=== PATIENT | female | born 1995 ===

== ENCOUNTER 2022-05-01 10:20 | Outpatient (CLI) | payer OTHER | END 2022-05-01 12:12 | disposition home or self-care (01) | LOC: PRENATAL 10:20 | PROVIDERS: ATTEND Obstetrics & Gynecology Maternal & Fetal Medicine | DX: O36.80X0 Pregnancy with inconclusive fetal viability, not applicable or unspecified (principal); O34.00 Maternal care for unspecified congenital malformation of uterus, unspecified trimester; Z14.8 Genetic carrier of other disease; Z3A.13 13 weeks gestation of pregnancy ==

== ENCOUNTER 2022-06-19 15:40 | Outpatient (CLI) | payer OTHER | END 2022-06-19 17:02 | disposition home or self-care (01) | LOC: PRENATAL 15:40 | PROVIDERS: ATTEND Obstetrics & Gynecology Maternal & Fetal Medicine | DX: O35.9XX0 Maternal care for (suspected) fetal abnormality and damage, unspecified, not applicable or unspecified (principal); O35.3XX0 Maternal care for (suspected) damage to fetus from viral disease in mother, not applicable or unspecified; Z3A.20 20 weeks gestation of pregnancy ==

== ENCOUNTER 2022-09-11 10:10 | Outpatient (CLI) | payer OTHER | END 2022-09-11 11:20 | disposition home or self-care (01) | LOC: PRENATAL 10:10 | PROVIDERS: ATTEND Obstetrics & Gynecology Maternal & Fetal Medicine | DX: O26.849 Uterine size-date discrepancy, unspecified trimester (principal); O35.9XX0 Maternal care for (suspected) fetal abnormality and damage, unspecified, not applicable or unspecified; Z3A.32 32 weeks gestation of pregnancy ==

== ENCOUNTER 2022-10-23 12:15 | Inpatient (IN) | payer OTHER ==
[~2022-10-23] VITALS: Ht 154.9 cm; Wt 3.2 kg
[2022-10-23] MEDS ORDERED: PRENAT PO (14:54)
[2022-10-27] MEDS ORDERED: PRENATAL + DHA1 EAC1 (05:49)
[2022-10-29] MEDS ORDERED: IBUPROFEN800 MG PO (11:13)
== END 2022-10-29 14:07 | disposition home or self-care (01) | DRG 788 ==
LOC: OB/GYN 10-27 07:00 → O/R 10-27 07:21 → OB/GYN 10-27 11:43
PROVIDERS: ADMIT Specialist; ATTEND Specialist
PROC: 4A1HXCZ Monitoring of Products of Conception, Cardiac Rate, External Approach (ICD-10-PCS; 2022-10-27)
PROC: 10D00Z1 Extraction of Products of Conception, Low, Open Approach (ICD-10-PCS; principal; 2022-10-27 07:00)
DX: O32.1XX0 Maternal care for breech presentation, not applicable or unspecified (principal); O34.03 Maternal care for unspecified congenital malformation of uterus, third trimester; Q51.3 Bicornate uterus; Z3A.39 39 weeks gestation of pregnancy; Z37.0 Single live birth; Z20.822 Contact with and (suspected) exposure to COVID-19